=== PATIENT | male | born 1990 | race Caucasian/White ===

== ENCOUNTER 2020-06-22 13:15 | Emergency (ER) | payer OTHER ==
[~2020-06-22] VITALS: Ht 172.7 cm; Wt 102.0 kg
[2020-06-22] MEDS ORDERED: IBUPROFEN 600MG TABLET PO ONE (14:30)
[2020-06-22] MEDS ORDERED: LIDOCAINE HCL/PF 1% 10 MG/ML 5ML VIAL IJ ONE (14:30)
[2020-06-22] MEDS ORDERED: BACITRACIN ZINC OINT UDPKT TOP ONE (14:30)
[2020-06-22] MEDS ORDERED: TETANUS, DIPHTHERIA, PERTUSSIS VAC/PF 0.5ML (>7YR OLD) IM ONE (15:45)
[2020-06-22 16:24] VITALS: BP 136/96
== END 2020-06-22 16:25 | disposition home or self-care (01) ==
LOC: ER 13:15
DX: S61.411A Laceration without foreign body of right hand, initial encounter (principal); X58.XXXA Exposure to other specified factors, initial encounter; Y93.89 Activity, other specified; Y92.89 Other specified places as the place of occurrence of the external cause; Y99.8 Other external cause status
CPT/HCPCS: 12002; 90471; 90715; 99283; J3490